=== PATIENT | female | born 1945 ===

== ENCOUNTER 2020-02-17 11:22 | Outpatient (CLI) | payer MEDICARE, SELFPAY ==
--- NOTE | 2020-02-17 11:32 | CT_ITS ---
WS: [id number] CT ABDOMEN PELVIS TECHNIQUE: Contrast-enhanced CT of the abdomen and pelvis with coronal and sagittal reformatted image s. CLINICAL INFORMATION: PERSONAL HX OF OTHER COLON CANCER COMPARISON: None. DLP: 725.[address] scans at [facility] use at least one of these dose optimization techniques: automat ed exposure control; mA and/or kV adjustment per patient size (includes targeted exams where dose is matched to clinical indication); or iterative reconstruction. FINDINGS: Mild diffuse fatty infiltration of the liver. Normal spleen. Normal pancreas. Portal veins and spleni c vein are patent. Adrenal glands are normal. Normal renal parenchymal enhancement. No hydronephrosis . Prior hysterectomy. Subsegmental atelectasis in the right middle lobe and right lower lobe. Normal GE junction. Prior postoperative changes sigmoid anastomosis. Diverticulosis. No evidence of acute diverticulitis. No evidence of small or large bowel obstruction. Normal appendix. No periaortic lymphadenopathy. No pelvic or inguinal lymphadenopathy. Normal caliber abdominal aorta with moderate calcified atheromato us disease. No aneurysm. Disc space narrowing worse L5-S1. Moderate central canal stenosis L3-L4 and L4-L5. CT/CT abdomen pelvis w con* [id number] IMPRESSION: 1. Mild diffuse fatty infiltration of the liver 2. Prior sigmoid resection with anastomosis. No visualized evidence of recurre nt mass or lesion. 3. Diverticulosis. No evidence of acute diverticulitis. 4. No evidence of small or large bowel obstruction. 5. No abdominal or pelvic lymphadenopathy. 6. Normal caliber abdominal aorta.
[2020-02-17 12:38] LABS: Blood Urea Nitrogen 13 mg/dL (8-23)
[2020-02-17] MEDS: iohexol 300 mg/mL 50 mL Btl PO (13:10)
[2020-02-17] MEDS: iodixanol 320 mg/mL 100mL Btl IV (13:11)
== END 2020-02-17 11:23 | disposition home or self-care (01) ==
LOC: CT 11:26
PROVIDERS: Visit Provider Nurse Practitioner Family
DX: R10.2 Pelvic and perineal pain (principal); Z85.038 Personal history of other malignant neoplasm of large intestine; K76.0 Fatty (change of) liver, not elsewhere classified; K63.89 Other specified diseases of intestine; K57.90 Diverticulosis of intestine, part unspecified, without perforation or abscess without bleeding
CPT/HCPCS: 36415; 74177; 82565; 84520

== ENCOUNTER 2020-05-04 07:42 | Outpatient (CLI) | payer MEDICARE, SELFPAY ==
--- NOTE | 2020-05-04 08:00 | CT_ITS ---
WS: [id number] CT scan of the chest with IV contrast, additional two-dimensional coronal and sagittal reconstruction was performed. 05/04/2020 Clinical Data: LUNG NODULES Comparison: None. DLP: 728.[address] scans at [facility] use at least one of these dose optimization techniques: automat ed exposure control; mA and/or kV adjustment per patient size (includes targeted exams where dose is matched to clinical indication); or iterative reconstruction. Findings: There is a soft tissue nodule in the lingula of the left upper lobe measuring 0.83 cm and seen best o n axial image 30 of 63. No masses or effusions are seen. The patient had partial resection of the rig ht sixth rib with postsurgical pleural changes.. There is minimal peripheral atelectasis distally abu tting the right pleura. No pneumonia or pneumothorax is present. The heart size is normal with no per icardial effusion. The pulmonary arterial system and thoracic aorta demonstrate no abnormalities or d ilatations. There is no axillary or significant mediastinal adenopathy. The upper abdomen shows minimal mural thrombosis of the infrarenal abdominal aorta. There is fatty i nfiltration of the liver. There is a T9 vertebral body hemangioma. CT/CT chest w con* [id number] Impression: 1. Low-density 0.83 cm nodule in lingula of the left upper lobe and recommend f ollow-up CT scan in 3 months. 2. Postsurgical changes of the right sixth rib and adjacent pleura. 3. No evidence of recurrent carcinoma.
[2020-05-04 08:41] LABS: Blood Urea Nitrogen 12 mg/dL (8-23)
[2020-05-04] MEDS: iohexol 300 mg/mL 100 mL Btl IV (08:48)
== END 2020-05-04 07:43 | disposition home or self-care (01) ==
PROVIDERS: PCP Nurse Practitioner Family; Visit Provider Nurse Practitioner Family
DX: R91.8 Other nonspecific abnormal finding of lung field (principal)
CPT/HCPCS: 71260; 82565; 84520; Q9967

== ENCOUNTER 2020-07-10 12:32 | Outpatient (CLI) | payer MEDICARE, SELFPAY ==
--- NOTE | 2020-07-12 17:05 | ONC CON_ITS ---
Dr. Dickerson New Patient Note Patient: Candi Pryor Unit #: [id number]: 1945 Dicatated By: Mahesh Dickerson M.D.Date of Visit: Jul 10, 2020 Onc MED New Patient/Consult Referring Physician: No 'Referrals from' exist for this patient. History of Present Illness: Ms. 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 As per patient she was followed by surgeon Dr. 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 As per patient she has history of thyroid cancer, diagnosed in 2007. at that time underwent partial thyroidectomy followed by radioactive iodine therapy and also has history of right lung cancer diagnosed in 2008 underwent resection followed by 1 dose of radiation Patient denies any history of smoking or alcohol use Patient denies any specific complaints today, no fever chills, no nausea or vomiting, no diarrhea or constipation, no melena or hematochezia, no jaundice, no abdominal pain as per patient she underwent CT scan of the chest on May 04, 2020 which showed low density 0.83 cm nodule in the lingula of left upper lobe and postsurgical change in the right sixth rib and adjacent pleura and no evidence of recurrent carcinoma prior to that on April 24, 2020 she had chest x-ray done which showed several small nodules scattered in the right lung. Past Medical History: Ms. Pryor's medical history consists of colon cancer, hypertension, lung cancer, throid cancer, and type II diabetes. Past Surgical History: There is no documented surgical history. Medications: Albuterol Sulfate HFA (108 (90 base) mcg/act) Aerosol, solution Inhalation 6x/d, ALPRAZolam (0.25 mg) Tablet Oral b.i.d., cloNIDine HCl (0.1 mg) Tablet Oral at bedtime, Cozaar (100 mg) Tablet Oral daily, Cyclobenzaprine HCl (10 mg) Tablet Oral t.i.d., Euthyrox (150 mcg) Tablet Oral every am, Glucophage (500 mg) Tablet Oral pc (bid), Simvastatin (20 mg) Tablet Oral daily, traZODone HCl (50 mg) Tablet Oral at bedtime Allergies: Morphine Sulf Microinfusion PF Social History: Ms. Pryor is . Ms. Pryor no longer smokes. She has no history of drinking. Family History: Ms. Pryor's mother is alive. Ms. Pryor's father is alive: hypertension, and type II diabetes. Ms. Pryor has 1 brother who is alive: diab. Review Of Symptoms: Review of Systems is not available for this patient. Vital Signs: Performed on Jul 10, 2020 13:44: 5, 0, 0.00 (LOW), sq.m, 99 %, 67 /min, 18 /min, 185/87 mm(hg) (HIGH), 97.5 F (LOW), and 165.6 lbs (HIGH). Performance Status: 1 - No physically strenuous activity, but ambulatory and able to carry out light or sedentary work (e.g. office work, light house work). (ECOG) Physical Examination: ENMT - No mouth sores, no thrush no jaundice, Respiratory - Lungs are clear to auscultation, Cardiovascular - Regular rate and rhythm of heart, Abdomen - Soft, bowel sounds present, Extremities - No visible edema. Lab/Imaging: Most recent lab results are not available for this patient. Impression: Moderately differentiated adenocarcinoma involving sigmoid colon/upper rectum status post robotic assisted LAR on January 19, 2019 final pathology report showed T3, N0 0 out of 6 lymph node positive for metastatic disease, stage II History of thyroid cancer diagnosed in 2007 status post partial thyroidectomy, as per patient she was given radioactive iodine History of right lung cancer status post resection 2008, as per patient she was given 1 dose of radiation Low density 0.83 cm nodule in lingula of left upper lobe seen on CT scan of chest done on May 04, 2020 Plan: Discussed with patient regarding her disease status and question and concerns and follow-up plan, Clinically, patient doing well with no new signs symptom suggestive of recurrence of disease patient was supposed get yearly follow-up colonoscopy after sigmoid colon/upper rectum cancer resection but due to Covid situation and personal issues it was not done, so we will refer her to GI for evaluation, patient wants to get it done in [facility] so we will refer her there. Patient will return to clinic in 3 months with CBC CMP and CEA and CT scan of chest with special attention to left lung nodule. Signed By: Mahesh Dickerson M.D. <<Signature on File>>
== END 2020-07-10 12:33 | disposition home or self-care (01) ==
PROVIDERS: PCP Nurse Practitioner Family; Referring Provider Family Medicine; Visit Provider Internal Medicine Hematology & Oncology
DX: Z08 Encounter for follow-up examination after completed treatment for malignant neoplasm (principal); Z85.038 Personal history of other malignant neoplasm of large intestine; R91.1 Solitary pulmonary nodule; E89.0 Postprocedural hypothyroidism; Z85.118 Personal history of other malignant neoplasm of bronchus and lung; Z85.850 Personal history of malignant neoplasm of thyroid; Z90.49 Acquired absence of other specified parts of digestive tract; Z90.2 Acquired absence of lung [part of]; Z92.3 Personal history of irradiation
CPT/HCPCS: 99204

== ENCOUNTER 2020-07-25 13:25 | Outpatient (CLI) | payer MEDICARE, SELFPAY ==
--- NOTE | 2020-07-25 13:50 | CT_ITS ---
WS: [id number] CT CHEST, ABDOMEN AND PELVIS WITH CONTRAST HISTORY: COLON CANCER TECHNIQUE: Contiguous 5 mm axial imaging performed through the chest, abdomen and pelvis with IV cont rast, oral contrast has been provided. Coronal and sagittal reformats chest. Coronal and sagittal ref ormats through the abdomen and pelvis. All CT scans at [facility] use at least one of the se dose optimization techniques: automated exposure control; mA and/or kV adjustment per patient size (includes targeted exams where dose is matched to clinical indication); or iterative reconstruction. CONTRAST: Omnipaque 300; 95 mL IV. DLP: 2207.81 mGycm COMPARISON: 05/04/2020 and 02/17/[address]: Chronic emphysematous changes with distal airways thickening. Again noted is the 8 mm nodul e at the lingula which has not increased in size since 05/04/2020. Pleural thickening and postsurgica l changes are noted in the RIGHT posterior lateral thorax. Parenchymal linear scars in the RIGHT midd le and RIGHT lower lobe. There is an area of pleural thickening with herniation of intercostal muscle s between 2 ribs. This appears between the seventh and eighth ribs. No new or increasing nodules. Mil d atherosclerosis aorta. No mediastinal or hilar adenopathy. Heart size is normal. Small hiatal herni a. Anterior chest wall is negative. Abdomen CT: Mild hepatic steatosis is unchanged. No mass within the liver. Spleen, gallbladder, pancr eas and adrenal glands are normal. Kidneys are normal size with no mass or obstruction. Moderate athe rosclerotic plaque within the aorta. No aneurysm. No adenopathy or ascites. Diffuse constipation. No GI tract obstruction. Numerous diverticula in the descending and sigmoid col on without acute diverticulitis. Surgical anastomosis near the sigmoid and rectum is stable. No recur rent mass or obstruction. Normal appendix. Pelvic CT: Well-distended urinary bladder. No free fluid or adenopathy in the pelvis. T9 hemangioma. No osteoblastic or osteolytic bone disease. CT/CT chest abd pel w con* IMPRESSION: 1. Stable 8 mm ovoid nodule in the lingula since 05/04/2020. Recommend [address] follow-up. 2. Postsurgical changes in the mid lateral RIGHT thorax are stable. No adenopa thy in the chest. 3. Rectosigmoid anastomosis is stable with no recurrent mass or obstruction. 4. Distal colonic diverticulosis without acute diverticulitis. 5. No metastatic disease to the liver or adrenal glands. 6. Moderate atherosclerosis abdominal aorta.
[2020-07-25] MEDS: iohexol 300 mg/mL 50 mL Btl PO (14:31)
[2020-07-25 15:30] LABS: Blood Urea Nitrogen 10 mg/dL (8-23)
[2020-07-25] MEDS: iohexol 300 mg/mL 100 mL Btl IV (15:48)
== END 2020-07-25 13:26 | disposition home or self-care (01) ==
LOC: RADWPI 13:44
PROVIDERS: PCP Nurse Practitioner Family; Visit Provider Internal Medicine Hematology & Oncology
DX: C18.7 Malignant neoplasm of sigmoid colon (principal); I70.0 Atherosclerosis of aorta; K57.90 Diverticulosis of intestine, part unspecified, without perforation or abscess without bleeding; K63.89 Other specified diseases of intestine
CPT/HCPCS: 71260; 74177; 82565; 84520; Q9967

== ENCOUNTER 2020-10-10 12:47 | Outpatient (CLI) | payer MEDICARE, SELFPAY ==
[2020-10-10 13:21] LABS: Basophils # 0.1 10^3/uL (0.0-0.1); Basophils % 0.6 %; Eosinophils # 0.1 10^3/uL (0.0-0.8); Eosinophils % 0.7 %; Hematocrit 44.2 % (37.0-47.0); Hemoglobin 15.1 g/dL (11.5-15.3); Lymphocytes % 25.6 %; Mean Corpuscular HGB Conc 34.2 g/dL (30.0-36.0); Mean Corpuscular Hemoglobin 33.6 pg (28.0-34.0); Mean Corpuscular Volume 98.4 fL (81-99); Mean Platelet Volume 10.6 fL (7.4-10.4); Monocytes # 0.7 10^3/uL (0.2-0.9); Monocytes % 5.6 %; Neutrophils # 7.87 10^3/uL (1.8-7.7); Neutrophils % 67.2 %; Nucleated Red Blood Cells % 0 %; Platelet Count 286 10^3/cmm (130-400); Red Blood Count 4.49 10^6/uL (4.1-5.3); Red Cell Distribution Width 13.2 % (12.1-15.1); White Blood Count 11.7 10^3/uL (4.0-10.0)
[2020-10-10 13:40] LABS: Carcinoembryonic Antigen 3.6 ng/mL (0.0-4.7)
[2020-10-10 13:51] LABS: Alanine Aminotransferase 13 U/L (0-33); Albumin Level 4.3 g/dL (3.5-5.2); Alkaline Phosphatase 110 IU/L (35-105); Anion Gap 18.3 (5-19); Aspartate Amino Transferase 14 U/L (0-32); Blood Urea Nitrogen 10 mg/dL (8-23); Calcium 8.9 mg/dL (8.5-10.5); Carbon Dioxide 23 mmol/L (22-29); Chloride 99 mmol/L (98-107); Globulin 2.6 g/dL (1.3-4.6); Glucose 147 mg/dL (65-115); Osmolality Calculated 284 mOsm/kg (285-295); Potassium 4.3 mmol/L (3.5-5.1); Sodium 136 mmol/L (136-145); Total Bilirubin 0.3 mg/dL (0.15-1.2); Total Protein 6.9 g/dL (6.6-8.7)
--- NOTE | 2020-10-10 15:16 | ONC FU_ITS ---
Dr. Dickerson follow up note Patient: Candi Pryor Unit #: [id number]: 1945 Dicatated By: Mahesh Dickerson M.D.Date of Visit:October 10, 2020 Onc Med Follow-up/Prog Note History of Present Illness: Ms. 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 As per patient she was followed by surgeon Dr. 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 As per patient she has history of thyroid cancer, diagnosed in 2007. at that time underwent partial thyroidectomy followed by radioactive iodine therapy and also has history of right lung cancer diagnosed in 2008 underwent resection followed by 1 dose of radiation Patient denies any history of smoking or alcohol use Patient denies any specific complaints today, no fever chills, no nausea or vomiting, no diarrhea or constipation, no melena or hematochezia, no jaundice, no abdominal pain as per patient she underwent CT scan of the chest on May 04, 2020 which showed low density 0.83 cm nodule in the lingula of left upper lobe and postsurgical change in the right sixth rib and adjacent pleura and no evidence of recurrent carcinoma prior to that on April 24, 2020 she had chest x-ray done which showed several small nodules scattered in the right lung. Follow-up CT scan of chest done on July 18, 2020 showed stable 8 mm ovoid nodule in the lingula since May 04, 2020 postsurgical changes in the mid lateral right thorax stable, no other abnormality seen except distal colonic diverticulosis Patient underwent colonoscopy on August 01, 2020, 2 tiny polyps one in the cecum and one at 45 cm from anal verge were removed both were benign, no other abnormality seen Came for follow-up, denies any specific complaints, no fever chills, no nausea or vomiting, no diarrhea or constipation, no abdominal pain, no jaundice, no melena or hematochezia, weight is stable. Recently underwent colonoscopy which was unremarkable except 2 benign polyps removed. Medications: Albuterol Sulfate HFA (108 (90 base) mcg/act) Aerosol, solution Inhalation 6x/d, ALPRAZolam (0.25 mg) Tablet Oral b.i.d., cloNIDine HCl (0.1 mg) Tablet Oral at bedtime, Cozaar (100 mg) Tablet Oral daily, Cyclobenzaprine HCl (10 mg) Tablet Oral t.i.d., Euthyrox (150 mcg) Tablet Oral every am, Glucophage (500 mg) Tablet Oral pc (bid), Simvastatin (20 mg) Tablet Oral daily, traZODone HCl (50 mg) Tablet Oral at bedtime Allergies: Morphine Sulf Microinfusion PF Review of Systems: Review of Systems is not available for this patient. Vital Signs: Performed on October 10, 2020 15:03 Weight - 162.6 lbs (LOW) BSA - 0.00 sq.m BMI - 0.00 Temperature - 97.6 F (LOW) Pulse - 67 /min Respiration - 18 /min BP - 162/89 mm(hg) (HIGH) O2 Sat - 97 % Pain - 0 Fatigue - 0 Performance Status: 0 - Fully active, able to carry on all predisease activities without restrictions. (ECOG) Physical Examination: ENMT - No mouth sores, no thrush, no jaundice, Respiratory - Lungs are clear to auscultation, Cardiovascular - Regular rate and rhythm of heart, Abdomen - Soft, bowel sounds present, Extremities - No visible edema. Lab/Imaging: Most recent lab results are not available for this patient. Impression: Moderately differentiated adenocarcinoma involving sigmoid colon/upper rectum status post robotic assisted LAR on January 19, 2019 final pathology report showed T3, N0 0 out of 6 lymph node positive for metastatic disease, stage II History of thyroid cancer diagnosed in 2007 status post partial thyroidectomy, as per patient she was given radioactive iodine History of right lung cancer status post resection 2008, as per patient she was given 1 dose of radiation Low density 0.83 cm nodule in lingula of left upper lobe seen on CT scan of chest done on May 04, 2020 Follow-up CT scan of chest done on July 25, 2020 showed stable 8 mm ovoid nodule in the lingula since May 04, 2020. Postsurgical changes. Follow-up colonoscopy done on August 01, 2020 showed 2 polyps one in the cecum and other at 45 cm from anal verge, biopsy shows unremarkable, no other abnormality seen. Plan: Discussed with patient regarding her labs white blood count 11.7 hemoglobin 15.1 hematocrit 44.2 platelets 286,000 CMP within normal limits, Follow-up CT scan of chest which shows stable left lung nodule and colonoscopy report which was done in July 2020 Clinically, patient doing well with no new signs symptoms history of recurrence of disease, her lab work-up is within normal range including tumor marker CEA which is 3.6 Her follow-up colonoscopy done recently showed no abnormality except 2 polyps removal both were benign, and follow-up CT scan of chest shows stable left lung nodule and follow-up in 6 months was recommended Return to clinic in 6 months with CBC CMP CEA and CT scan of chest Signed By: Mahesh Dickerson M.D. <<Signature on File>>
== END 2020-10-10 12:48 | disposition home or self-care (01) ==
LOC: ONCMED 12:49
PROVIDERS: PCP Nurse Practitioner Family; Visit Provider Internal Medicine Hematology & Oncology
DX: Z08 Encounter for follow-up examination after completed treatment for malignant neoplasm (principal); Z85.038 Personal history of other malignant neoplasm of large intestine; Z85.048 Personal history of other malignant neoplasm of rectum, rectosigmoid junction, and anus; Z85.850 Personal history of malignant neoplasm of thyroid; Z85.118 Personal history of other malignant neoplasm of bronchus and lung; Z79.899 Other long term (current) drug therapy
CPT/HCPCS: 80053; 82378; 85025; 99214

== ENCOUNTER 2021-04-15 11:13 | Outpatient (CLI) | payer MEDICARE, SELFPAY ==
[2021-04-15 12:55] LABS: Carcinoembryonic Antigen 3.4 ng/mL (0.0-4.7)
[2021-04-15 13:06] LABS: Alanine Aminotransferase 11 U/L (0-33); Alkaline Phosphatase 104 IU/L (35-105); Blood Urea Nitrogen 11 mg/dL (8-23); Calcium 8.7 mg/dL (8.5-10.5); Carbon Dioxide 21 mmol/L (22-29); Chloride 99 mmol/L (98-107); Globulin 2.9 g/dL (1.3-4.6); Glucose 140 mg/dL (65-115); Osmolality Calculated 286 mOsm/kg (285-295); Sodium 137 mmol/L (136-145); Total Bilirubin 0.3 mg/dL (0.15-1.2); Total Protein 6.9 g/dL (6.6-8.7)
[2021-04-15 13:10] LABS: Anion Gap 21.1 (5-19); Aspartate Amino Transferase 14 U/L (0-32); Potassium 4.1 mmol/L (3.5-5.1)
[2021-04-15 13:33] LABS: Basophils # 0.1 10^3/uL (0.0-0.1); Basophils % 0.8 %; Eosinophils # 0.1 10^3/uL (0.0-0.8); Hematocrit 41.1 % (37.0-47.0); Hemoglobin 14.3 g/dL (11.5-15.3); Lymphocytes % 29.7 %; Mean Corpuscular HGB Conc 34.8 g/dL (30.0-36.0); Mean Corpuscular Hemoglobin 33.4 pg (28.0-34.0); Mean Platelet Volume 11.7 fL (7.4-10.4); Monocytes # 0.7 10^3/uL (0.2-0.9); Monocytes % 7.2 %; Neutrophils # 6.23 10^3/uL (1.8-7.7); Neutrophils % 60.9 %; Nucleated Red Blood Cells % 0 %; Platelet Count 269 10^3/cmm (130-400); Red Blood Count 4.28 10^6/uL (4.1-5.3); Red Cell Distribution Width 13.4 % (12.1-15.1); White Blood Count 10.2 10^3/uL (4.0-10.0)
--- NOTE | 2021-04-15 15:44 | ONC FU_ITS ---
Dr. Dickerson follow up note Patient: Candi Pryor Unit #: [id number]: 1945 Dicatated By: Mahesh Dickerson M.D.Date of Visit:Apr 15, 2021 Onc Med Follow-up/Prog Note History of Present Illness: Ms. 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 As per patient she was followed by surgeon Dr. 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 As per patient she has history of thyroid cancer, diagnosed in 2007. at that time underwent partial thyroidectomy followed by radioactive iodine therapy and also has history of right lung cancer diagnosed in 2008 underwent resection followed by 1 dose of radiation Patient denies any history of smoking or alcohol use Patient denies any specific complaints today, no fever chills, no nausea or vomiting, no diarrhea or constipation, no melena or hematochezia, no jaundice, no abdominal pain as per patient she underwent CT scan of the chest on May 04, 2020 which showed low density 0.83 cm nodule in the lingula of left upper lobe and postsurgical change in the right sixth rib and adjacent pleura and no evidence of recurrent carcinoma prior to that on April 24, 2020 she had chest x-ray done which showed several small nodules scattered in the right lung. Follow-up CT scan of chest done on July 18, 2020 showed stable 8 mm ovoid nodule in the lingula since May 04, 2020 postsurgical changes in the mid lateral right thorax stable, no other abnormality seen except distal colonic diverticulosis Patient underwent colonoscopy on August 01, 2020, 2 tiny polyps one in the cecum and one at 45 cm from anal verge were removed both were benign, no other abnormality seen Came for follow-up, denies any specific complaint except weight gain but no lower extremity edema, no shortness of breath, no fever chills, no nausea or vomiting, no diarrhea or constipation, no hemoptysis or hematemesis, no jaundice, no melena hematochezia Medications: Albuterol Sulfate HFA (108 (90 base) mcg/act) Aerosol, solution Inhalation 6x/d, ALPRAZolam (0.25 mg) Tablet Oral b.i.d., cloNIDine HCl (0.1 mg) Tablet Oral at bedtime, Cozaar (100 mg) Tablet Oral daily, Cyclobenzaprine HCl (10 mg) Tablet Oral t.i.d., Euthyrox (150 mcg) Tablet Oral every am, Glucophage (500 mg) Tablet Oral pc (bid), Simvastatin (20 mg) Tablet Oral daily, traZODone HCl (50 mg) Tablet Oral at bedtime Allergies: Morphine Sulf Microinfusion PF Review of Systems: Review of Systems is not available for this patient. Vital Signs: Performed on Apr 15, 2021 13:11 Height - 65 in Weight - 169.6 lbs (HIGH) BSA - 1.84 sq.m BMI - 28.22 Temperature - 98.2 F (LOW) Pulse - 73 /min Respiration - 18 /min BP - 186/81 mm(hg) (HIGH) O2 Sat - 97 % Pain - 0 Fatigue - 6 Performance Status: 0 - Fully active, able to carry on all predisease activities without restrictions. (ECOG) Physical Examination: ENMT - No mouth sores, no thrush, no jaundice, Respiratory - Lungs are clear to auscultation, Cardiovascular - Regular rate and rhythm of heart, Abdomen - Soft, bowel sounds present, Extremities - No visible edema. Lab/Imaging: Test performed on Mar 29, 2021 10:45 BUN 14 mg/dL Creatinine 0.9 mg/dL Impression: Moderately differentiated adenocarcinoma involving sigmoid colon/upper rectum status post robotic assisted LAR on January 19, 2019 final pathology report showed T3, N0 0 out of 6 lymph node positive for metastatic disease, stage II History of thyroid cancer diagnosed in 2007 status post partial thyroidectomy, as per patient she was given radioactive iodine History of right lung cancer status post resection 2008, as per patient she was given 1 dose of radiation Low density 0.83 cm nodule in lingula of left upper lobe seen on CT scan of chest done on May 04, 2020 Follow-up CT scan of chest done on July 25, 2020 showed stable 8 mm ovoid nodule in the lingula since May 04, 2020. Postsurgical changes. Follow-up colonoscopy done on August 01, 2020 showed 2 polyps one in the cecum and other at 45 cm from anal verge, biopsy shows unremarkable, no other abnormality seen. Plan: Discussed with patient regarding her labs, CBC CMP within normal limits CEA 3.4 CT scan of chest done on March 29, 2021 showed postoperative changes in the right hemithorax, hepatic steatosis, thoracic spondylosis. Clinically, patient doing well with no new signs symptoms history of recurrence of disease her lab work-up including tumor marker CEA and follow-up CT scan of chest showed no evidence of recurrence of disease clinically, patient doing well will continue to monitor and she will return to clinic in 6 months with CBC CMP and CEA Mild leukocytosis, not improving, no sign of infections, will continue to monitor, if there is no resolution may consider whole blood flow cytometry. Signed By: Mahesh Dickerson M.D. <<Signature on File>>
== END 2021-04-15 11:14 | disposition home or self-care (01) ==
PROVIDERS: PCP Nurse Practitioner Family; Visit Provider Internal Medicine Hematology & Oncology
DX: Z08 Encounter for follow-up examination after completed treatment for malignant neoplasm (principal); Z85.038 Personal history of other malignant neoplasm of large intestine; Z85.850 Personal history of malignant neoplasm of thyroid; Z85.118 Personal history of other malignant neoplasm of bronchus and lung; Z86.010 Personal history of colon polyps; Z79.899 Other long term (current) drug therapy
CPT/HCPCS: 36415; 80053; 82378; 85025; 99214

== ENCOUNTER 2021-11-06 11:30 | Oncology outpatient (recurring) (ONCR) | payer MEDICARE, SELFPAY ==
[2021-11-06 12:00] LABS: Basophils # 0.1 10^3/uL (0.0-0.1); Basophils % 0.9 %; Eosinophils # 0.1 10^3/uL (0.0-0.8); Eosinophils % 0.7 %; Hematocrit 40.4 % (37.0-47.0); Hemoglobin 13.9 g/dL (11.5-15.3); Lymphocytes # 2.6 10^3/uL (0.8-4.8); Lymphocytes % 29.1 %; Mean Corpuscular HGB Conc 34.4 g/dL (30.0-36.0); Mean Corpuscular Hemoglobin 32.5 pg (28.0-34.0); Mean Corpuscular Volume 94.4 fl (81-99); Mean Platelet Volume 10.3 fL (7.4-10.4); Monocytes # 0.6 10^3/uL (0.2-0.9); Monocytes % 6.2 %; Neutrophils # 5.59 10^3/uL (1.8-7.7); Neutrophils % 62.8 %; Nucleated Red Blood Cells % 0 %; Platelet Count 290 10^3/cmm (130-400); Red Blood Count 4.28 10^6/uL (4.1-5.3); Red Cell Distribution Width 13.1 % (12.1-15.1); White Blood Count 8.9 10^3/uL (4.0-10.0)
[2021-11-06 12:44] LABS: Carcinoembryonic Antigen 3.7 ng/mL (0.0-4.7)
[2021-11-06 12:55] LABS: Alanine Aminotransferase 12 U/L (0-33); Albumin Level 3.9 g/dL (3.5-5.2); Alkaline Phosphatase 99 IU/L (35-105); Anion Gap 17.1 (5-19); Aspartate Amino Transferase 11 U/L (0-32); Blood Urea Nitrogen 16 mg/dL (8-23); Carbon Dioxide 19 mmol/L (22-29); Chloride 94 mmol/L (98-107); Globulin 3.3 g/dL (1.3-4.6); Glucose 155 mg/dL (65-115); Osmolality Calculated 266 mOsm/kg (285-295); Potassium 4.1 mmol/L (3.5-5.1); Sodium 126 mmol/L (136-145); Total Bilirubin 0.3 mg/dL (0.15-1.2); Total Protein 7.2 g/dL (6.6-8.7)
== END 2021-11-14 23:59 | disposition home or self-care (01) ==
PROVIDERS: PCP Nurse Practitioner Family; Referring Provider Nurse Practitioner Family; Visit Provider Internal Medicine Hematology & Oncology
DX: C18.7 Malignant neoplasm of sigmoid colon (principal); K59.09 Other constipation; E87.1 Hypo-osmolality and hyponatremia; Z90.49 Acquired absence of other specified parts of digestive tract
CPT/HCPCS: 80053; 82378; 85025; 99214

== ENCOUNTER → 2021-11-20 12:29 | Outpatient (BNVA) | payer MEDICARE, SELFPAY | PROVIDERS: PCP Nurse Practitioner Family; Referring Provider Internal Medicine Hematology & Oncology; Visit Provider Surgery | DX: C18.9 Malignant neoplasm of colon, unspecified (principal) | CPT/HCPCS: 99203 ==

== ENCOUNTER 2021-11-27 06:44 | Day surgery (SDC) | payer MEDICARE, SELFPAY ==
[2021-11-22 11:04] VITALS: BMI 26.8
[2021-11-27 07:38] VITALS: BP 146/76; PULSE 57; RESP 18; TEMP 35.8; O2SAT 94
[2021-11-27] MEDS: sodium chloride 0.9% 1,000 ML 30 ML IV (07:38)
--- NOTE | 2021-11-27 07:50 | ANES.PREANE2 ---
Pre-Anesthetic Assessment Height/Weight: Height 1.65 m Weight 73.028 kg Temp Pulse Resp BP Pulse Ox 96.5 F L 57 L 18 146/76 94 11/27/21 07:38 11/27/21 07:38 11/27/21 07:38 11/27/21 07:38 11/27/21 07:38 Preop Diagnosis: History of colon cancer Operation Date: 11/27/21 08:30 Proposed Procedures p Colonoscopy 75234,C18.9(Not Applicable) - Axel Cervantes MD Familial anesthetic complications: none Was Beta Teresa taken within 24 hours: N/A Was Clonidine taken within 24 hours: Yes Last intake: Intake Last Liquid Date 11/28/21 Last Liquid Time 20:30 Last Solid Date 11/25/21 Last Solid Time 20:00 Social Tobacco and No alcohol Exam alert, oriented x 3, clear to auscultation bilaterally and regular rate & rhythm Airway Submandibular: within normal limits Cervical ROM: within normal limits Mallampati: Class III Dentition: false Pulmonary None reported CV/HEM None reported None reported Hepatic None reported GI Colon cancer Metabolic Thyroid Disease (Hx of thyroid cancer ) Neuropsych Anxiety and None reported Anesthetic Plan ASA status: 3 (76 year old female daily smoker with hx of colon and thyroid cancer ) Anesthesia: Anesthesia Evaluation, General and MAC Other: I discussed with the patient risks, goals, and benefits of MAC and general anesthesia. We discussed spectrum of MAC anesthesia including conversion to general as well as possibility of recall of intraoperative stimuli including discomfort/pain. Patient agrees to proceed with MAC. Risk of > 500 ml blood loss (7ml/kg in children): No Medications/Allergies Home Medications Medication Instructions Recorded Confirmed Last Taken Type albuterol sulfate 90 mcg/actuation 1 inh INHALATION QID PRN 11/06/21 11/22/21 11/26/21 History breath activated powder inhaler alprazolam 0.25 mg tablet 0.25 mg PO BID 11/06/21 11/22/21 11/26/21 History clonidine HCl 0.1 mg tablet 0.1 mg PO .hs tab 11/06/21 11/22/21 11/26/21 History cyclobenzaprine 10 mg tablet 10 mg PO TID 11/06/21 11/22/21 11/26/21 History levothyroxine 150 mcg capsule 150 mcg PO DAILY 06/11/22/21 11/26/21 History losartan 100 mg tablet (Cozaar) 100 mg PO DAILY 11/06/21 11/22/21 11/26/21 History metformin 500 mg tablet 500 mg PO BID 11/06/21 11/22/21 11/26/21 History simvastatin 20 mg tablet 20 mg PO DAILY 11/06/21 11/22/21 11/26/21 History trazodone 50 mg tablet 25 mg PO .hs tab 11/06/21 11/22/21 11/26/21 History lactulose 10 gram/15 mL oral 15 ml PO BID 7 Days #210 ml 11/20/21 11/22/21 11/26/21 Rx solution Allergies Allergy/AdvReac Type Severity Reaction Status Date / Time Opioids - Morphine Analogues Allergy Unknown ADR-Itching Verified 11/27/21 07:34 Current Medications Generic Name Dose Route Start Last Admin Trade Name Freq PRN Reason Stop Dose Admin Sodium Chloride 1,000 mls @ 30 mls/hr 11/27/21 07:00 11/27/21 07:38 Sodium Chloride 0.9% IV 11/28/21 06:59 30 mls/hr .Q24H JACK Administration PFSH Anesthesia Medical History Colon cancer Family History Father CAD (coronary artery disease) Cancer thyroid Mother CAD (coronary artery disease) Brother Diabetes Sister Diabetes Other Hyperlipidemia Hypertension Denies family history of Clotting disorder Dementia Psychiatric illness Chronic kidney disease (CKD) Suicide Anesthesia complication Bleeding disorder Lung disease Stroke Social History Smoking and tobacco status: current every day smoker (Trying to quit - about 1 to 2 cigs/day) cigarettes [ Other cigarette details: Trying to quit] Data Anesthesia Cardiac Studies: No Data to Display
--- NOTE | 2021-11-27 08:00 | W.PM.OPSUD ---
Surgery/Procedure H&P Update DATE OF PROCEDURE: November 27, 2021 DATE H&P PERFORMED: 11/20/21 H&P UPDATE INFORMATION: I have reviewed H&P completed within last 30 days, I have examined patient prior to procedure and No changes to prior documentation PREOP DIAGNOSIS: History of colon cancer PRIMARY INDICATION FOR PROCEDURE: The same PLANNED PROCEDURE: Operation Date: 11/27/21 08:30 Proposed Procedures p Colonoscopy 32641,C18.9(Not Applicable) - Axel Cervantes MD
[2021-11-27 08:55] VITALS: BP 155/77; PULSE 51; RESP 14; TEMP 36.3; O2SAT 95
[2021-11-27 09:05] VITALS: BP 154/98; PULSE 50; RESP 16; O2SAT 93
[2021-11-27 09:15] VITALS: BP 188/91; PULSE 52; RESP 16; O2SAT 97
--- NOTE | 2021-11-27 13:30 | ANE.PACU2 ---
Inpatient post-anesthesia follow up: Airway intact: Yes Vital signs: Temperature 97.4 F Pulse Rate 52 Respiratory Rate 16 Blood Pressure 188/91 Pulse Oximetry 97 Oxygen Delivery Me thod Room Air Oxygen Flow Rate Fraction of Inspir ed Oxygen Hydration adequate: Yes Nausea and vomiting: No Pain level: 1 Mental status: Baseline
== END 2021-11-27 09:35 | disposition home or self-care (01) ==
PROVIDERS: PCP Family Medicine; Visit Provider Surgery
PROC: 0DJD8ZZ Inspection of Lower Intestinal Tract, Via Natural or Artificial Opening Endoscopic (ICD-10-PCS; CPT 45378; principal; 2021-11-27 08:30)
DX: Z12.11 Encounter for screening for malignant neoplasm of colon (principal); K57.30 Diverticulosis of large intestine without perforation or abscess without bleeding; Z80.0 Family history of malignant neoplasm of digestive organs; Z90.49 Acquired absence of other specified parts of digestive tract; Z85.850 Personal history of malignant neoplasm of thyroid; Z92.21 Personal history of antineoplastic chemotherapy; F17.210 Nicotine dependence, cigarettes, uncomplicated
CPT/HCPCS: 45378; J2704; J7030

== ENCOUNTER 2022-07-15 13:04 | Oncology outpatient (recurring) (ONCR) | payer MEDICARE, SELFPAY ==
[2022-07-15 14:22] LABS: Basophils # 0.1 10^3/uL (0.0-0.1); Basophils % 0.8 %; Eosinophils # 0.1 10^3/uL (0.0-0.8); Eosinophils % 0.8 %; Hematocrit 41.6 % (37.0-47.0); Hemoglobin 13.9 g/dL (11.5-15.3); Lymphocytes # 4.1 10^3/uL (0.8-4.8); Lymphocytes % 33.8 %; Mean Corpuscular HGB Conc 33.4 g/dL (30.0-36.0); Mean Corpuscular Hemoglobin 32.6 pg (28.0-34.0); Mean Corpuscular Volume 97.7 fl (81-99); Mean Platelet Volume 10.4 fL (7.4-10.4); Monocytes % 7.9 %; Neutrophils # 6.75 10^3/uL (1.8-7.7); Neutrophils % 56.3 %; Nucleated Red Blood Cells % 0 %; Platelet Count 309 10^3/cmm (130-400); Red Blood Count 4.26 10^6/uL (4.1-5.3); Red Cell Distribution Width 13.7 % (12.1-15.1)
[2022-07-15 14:53] LABS: Carcinoembryonic Antigen 3.8 ng/mL (0.0-4.7)
[2022-07-15 15:04] LABS: Alanine Aminotransferase 14 U/L (0-33); Albumin Level 4.1 g/dL (3.5-5.2); Alkaline Phosphatase 109 U/L (35-105); Anion Gap 17.7 (5-19); Aspartate Amino Transferase 14 U/L (0-32); Blood Urea Nitrogen 14 mg/dL (8-23); Calcium 9.1 mg/dL (8.5-10.5); Carbon Dioxide 24 mmol/L (22-29); Chloride 98 mmol/L (98-107); Globulin 3.3 g/dL (1.3-4.6); Glucose 78 mg/dL (65-115); Osmolality Calculated 281 mOsm/kg (285-295); Potassium 3.7 mmol/L (3.5-5.1); Sodium 136 mmol/L (136-145); Total Bilirubin 0.3 mg/dL (0.15-1.2); Total Protein 7.4 g/dL (6.6-8.7)
== END 2022-07-15 23:59 | disposition home or self-care (01) ==
PROVIDERS: PCP Family Medicine; Visit Provider Internal Medicine Hematology & Oncology
DX: Z08 Encounter for follow-up examination after completed treatment for malignant neoplasm (principal); Z85.038 Personal history of other malignant neoplasm of large intestine; D72.829 Elevated white blood cell count, unspecified; F17.210 Nicotine dependence, cigarettes, uncomplicated
CPT/HCPCS: 36415; 80053; 82378; 85025; 99214

== ENCOUNTER 2023-01-14 10:22 | Oncology outpatient (recurring) (ONCR) | payer MEDICARE, SELFPAY ==
[2023-01-14 10:23] VITALS: BMI 27.8
[2023-01-14 10:26] VITALS: BP 204/100; PULSE 67; RESP 16; TEMP 36.1; O2SAT 97
[2023-01-14 10:51] LABS: Basophils # 0.1 10^3/uL (0.0-0.1); Basophils % 0.9 %; Eosinophils # 0.1 10^3/uL (0.0-0.8); Eosinophils % 1.5 %; Hematocrit 41.2 % (36-47); Lymphocytes # 2.4 10^3/uL (0.8-4.8); Lymphocytes % 30.5 %; Mean Corpuscular Volume 97.2 fl (85-98); Monocytes # 0.6 10^3/uL (0.2-0.9); Monocytes % 7.1 %; Neutrophils # 4.71 10^3/uL (1.8-7.7); Neutrophils % 59.7 %; Nucleated Red Blood Cells % 0 %; Platelet Count 302 10^3/cmm (157-399); Red Blood Count 4.24 10^6/uL (3.85-5.65); Red Cell Distribution Width 13.2 % (12.1-15.1); White Blood Count 7.89 10^3/uL (3.29-11.43)
[2023-01-14 11:16] LABS: Carcinoembryonic Antigen 4.8 ng/mL (0.0-4.7)
[2023-01-14 11:27] LABS: Alanine Aminotransferase 14 U/L (0-33); Albumin Level 4.5 g/dL (3.5-5.2); Alkaline Phosphatase 97 U/L (35-105); Aspartate Amino Transferase 14 U/L (0-32); Blood Urea Nitrogen 15 mg/dL (8-23); Calcium 9.3 mg/dL (8.5-10.5); Carbon Dioxide 26 mmol/L (22-29); Chloride 97 mmol/L (98-107); Globulin 2.7 g/dL (1.3-4.6); Glucose 138 mg/dL (65-115); Osmolality Calculated 281 mOsm/kg (285-295); Sodium 134 mmol/L (136-145); Total Bilirubin 0.4 mg/dL (0.15-1.2); Total Protein 7.2 g/dL (6.6-8.7)
[2023-01-14 11:28] LABS: Creatinine Clr Calc Pharmacy 48.7333
== END 2023-01-15 23:59 | disposition home or self-care (01) ==
PROVIDERS: Internal Medicine Medical Oncology; PCP Family Medicine; Visit Provider Internal Medicine Hematology & Oncology
DX: C18.9 Malignant neoplasm of colon, unspecified (principal); C18.7 Malignant neoplasm of sigmoid colon; I10 Essential (primary) hypertension; Z79.899 Other long term (current) drug therapy
CPT/HCPCS: 36415; 80053; 82378; 85025; 99215

== ENCOUNTER 2023-06-26 08:42 | Oncology outpatient (recurring) (ONCR) | payer MEDICARE, SELFPAY ==
[2023-06-26 09:23] LABS: Basophils # 0.1 10^3/uL (0.0-0.1); Basophils % 1.3 %; Eosinophils # 0.2 10^3/uL (0.0-0.8); Eosinophils % 2.8 %; Hematocrit 40.7 % (36-47); Lymphocytes # 2.1 10^3/uL (0.8-4.8); Lymphocytes % 29.4 %; Mean Corpuscular HGB Conc 34.6 g/dL (30-55); Mean Corpuscular Hemoglobin 34.1 pg (27-33); Mean Corpuscular Volume 98.3 fl (85-98); Mean Platelet Volume 9.7 fL (7.4-10.4); Monocytes # 0.5 10^3/uL (0.2-0.9); Monocytes % 7.6 %; Neutrophils # 4.19 10^3/uL (1.8-7.7); Neutrophils % 58.5 %; Nucleated Red Blood Cells % 0 %; Platelet Count 295 10^3/cmm (157-399); Red Blood Count 4.14 10^6/uL (3.85-5.65); White Blood Count 7.15 10^3/uL (3.29-11.43)
[2023-06-26 09:48] LABS: Carcinoembryonic Antigen 5.5 ng/mL (0.0-4.7)
[2023-06-26 10:00] LABS: Alanine Aminotransferase 17 U/L (0-33); Alkaline Phosphatase 103 U/L (35-105); Anion Gap 16.7 (5-19); Aspartate Amino Transferase 14 U/L (0-32); Blood Urea Nitrogen 16 mg/dL (8-23); Calcium 9.3 mg/dL (8.5-10.5); Carbon Dioxide 26 mmol/L (22-29); Chloride 97 mmol/L (98-107); Globulin 3.3 g/dL (1.3-4.6); Glucose 129 mg/dL (65-115); Osmolality Calculated 283 mOsm/kg (285-295); Potassium 4.7 mmol/L (3.5-5.1); Sodium 135 mmol/L (136-145); Total Bilirubin 0.3 mg/dL (0.15-1.2); Total Protein 7.3 g/dL (6.6-8.7)
== END 2023-07-16 23:59 | disposition home or self-care (01) ==
PROVIDERS: Nurse Practitioner Family; PCP Family Medicine; Visit Provider Internal Medicine Hematology & Oncology
DX: Z85.038 Personal history of other malignant neoplasm of large intestine (principal); R97.0 Elevated carcinoembryonic antigen [CEA]; F17.210 Nicotine dependence, cigarettes, uncomplicated; I10 Essential (primary) hypertension; R91.1 Solitary pulmonary nodule; Z90.49 Acquired absence of other specified parts of digestive tract
CPT/HCPCS: 36415; 80053; 82378; 85025; 99214

== ENCOUNTER 2024-01-22 09:12 | Oncology outpatient (recurring) (ONCR) | payer MEDICARE, SELFPAY ==
[2024-01-22 10:10] LABS: Basophils # 0.1 10^3/uL (0.0-0.1); Basophils % 0.9 %; Eosinophils # 0.3 10^3/uL (0.0-0.8); Eosinophils % 2.6 %; Lymphocytes # 3.4 10^3/uL (0.8-4.8); Lymphocytes % 34.6 %; Mean Corpuscular HGB Conc 33.8 g/dL (30-55); Mean Corpuscular Hemoglobin 33.3 pg (27-33); Mean Corpuscular Volume 98.6 fl (85-98); Mean Platelet Volume 9.8 fL (7.4-10.4); Monocytes # 0.7 10^3/uL (0.2-0.9); Monocytes % 6.6 %; Neutrophils # 5.39 10^3/uL (1.8-7.7); Neutrophils % 54.9 %; Nucleated Red Blood Cells % 0 %; Platelet Count 300 10^3/cmm (157-399); Red Blood Count 4.26 10^6/uL (3.85-5.65); Red Cell Distribution Width 13.8 % (12.1-15.1); White Blood Count 9.83 10^3/uL (3.29-11.43)
[2024-01-22 10:48] LABS: Alanine Aminotransferase 17 U/L (0-33); Albumin Level 4.2 g/dL (3.5-5.2); Alkaline Phosphatase 101 U/L (35-105); Anion Gap 16.1 (5-19); Aspartate Amino Transferase 17 U/L (0-32); Blood Urea Nitrogen 17 mg/dL (8-23); Calcium 8.9 mg/dL (8.5-10.5); Carbon Dioxide 26 mmol/L (22-29); Chloride 94 mmol/L (98-107); Globulin 3.2 g/dL (1.3-4.6); Glucose 171 mg/dL (65-115); Osmolality Calculated 280 mOsm/kg (285-295); Potassium 4.1 mmol/L (3.5-5.1); Sodium 132 mmol/L (136-145); Total Bilirubin 0.3 mg/dL (0.15-1.2); Total Protein 7.4 g/dL (6.6-8.7)
[2024-01-22] MEDS: ondansetron 4 MG Tablet 8 MG PO (12:00)
== END 2024-02-15 23:59 | disposition home or self-care (01) ==
PROVIDERS: Nurse Practitioner Family; PCP Family Medicine; Visit Provider Internal Medicine Hematology & Oncology
DX: C18.9 Malignant neoplasm of colon, unspecified (principal); I10 Essential (primary) hypertension; Z90.49 Acquired absence of other specified parts of digestive tract; F17.210 Nicotine dependence, cigarettes, uncomplicated
CPT/HCPCS: 36415; 80053; 82378; 85025; 99214; Q0162

== ENCOUNTER 2024-08-10 12:58 | Oncology outpatient (recurring) (ONCR) | payer MEDICARE, SELFPAY ==
[2024-08-10 13:21] LABS: Basophils # 0.1 10^3/uL (0.0-0.1); Basophils % 1.1 %; Eosinophils # 0.1 10^3/uL (0.0-0.8); Eosinophils % 1.4 %; Hematocrit 41.1 % (36-47); Lymphocytes # 3.3 10^3/uL (0.8-4.8); Lymphocytes % 32.9 %; Mean Corpuscular HGB Conc 33.3 g/dL (30-55); Mean Corpuscular Hemoglobin 32.5 pg (27-33); Mean Corpuscular Volume 97.4 fl (85-98); Mean Platelet Volume 9.6 fL (7.4-10.4); Monocytes # 0.8 10^3/uL (0.2-0.9); Monocytes % 7.7 %; Neutrophils # 5.67 10^3/uL (1.8-7.7); Neutrophils % 56.6 %; Nucleated Red Blood Cells % 0 %; Platelet Count 360 10^3/cmm (157-399); Red Blood Count 4.22 10^6/uL (3.85-5.65); Red Cell Distribution Width 13.7 % (12.1-15.1); White Blood Count 10.01 10^3/uL (3.29-11.43)
[2024-08-10 14:00] LABS: Carcinoembryonic Antigen 4.7 ng/mL (0.0-4.7)
[2024-08-10 14:11] LABS: Alanine Aminotransferase 16 U/L (0-33); Albumin Level 4.2 g/dL (3.5-5.2); Alkaline Phosphatase 115 U/L (35-105); Anion Gap 15.9 (5-19); Aspartate Amino Transferase 16 U/L (0-32); Blood Urea Nitrogen 15 mg/dL (8-23); Calcium 9.4 mg/dL (8.5-10.5); Carbon Dioxide 27 mmol/L (22-29); Chloride 94 mmol/L (98-107); Globulin 3.5 g/dL (1.3-4.6); Glucose 178 mg/dL (65-115); Osmolality Calculated 281 mOsm/kg (285-295); Potassium 3.9 mmol/L (3.5-5.1); Sodium 133 mmol/L (136-145); Total Bilirubin 0.3 mg/dL (0.15-1.2); Total Protein 7.7 g/dL (6.6-8.7)
== END 2024-08-15 23:59 | disposition home or self-care (01) ==
PROVIDERS: Nurse Practitioner Family; PCP Family Medicine; Visit Provider Internal Medicine
DX: Z08 Encounter for follow-up examination after completed treatment for malignant neoplasm (principal); Z85.038 Personal history of other malignant neoplasm of large intestine; Z72.0 Tobacco use; I10 Essential (primary) hypertension; Z90.49 Acquired absence of other specified parts of digestive tract; Z71.6 Tobacco abuse counseling
CPT/HCPCS: 36415; 80053; 82378; 85025; 99214

== ENCOUNTER 2025-02-08 11:56 | Oncology outpatient (recurring) (ONCR) | payer MEDICARE, SELFPAY ==
[2025-02-08 12:34] LABS: Hematocrit 40.9 % (36-47); Hemoglobin 13.80 g/dL (11.27-16.99); Mean Corpuscular HGB Conc 33.7 g/dL (30-55); Mean Corpuscular Hemoglobin 33.4 pg (27-33); Mean Corpuscular Volume 99.0 fl (85-98); Nucleated Red Blood Cells % 0 %; Platelet Count 309 10^3/cmm (157-399); Red Blood Count 4.13 10^6/uL (3.85-5.65); White Blood Count 9.19 10^3/uL (3.29-11.43)
[2025-02-08 12:54] LABS: Alanine Aminotransferase 14 U/L (0-33); Albumin Level 4.1 g/dL (3.5-5.2); Alkaline Phosphatase 104 U/L (35-105); Anion Gap 11.8 (5-19); Aspartate Amino Transferase 14 U/L (0-32); Blood Urea Nitrogen 13 mg/dL (8-23); Calcium 9.5 mg/dL (8.5-10.5); Carbon Dioxide 30 mmol/L (22-29); Chloride 97 mmol/L (98-107); Creatinine Clr Calc Pharmacy 52.7511; Globulin 3.4 g/dL (1.3-4.6); Glucose 233 mg/dL (65-115); Osmolality Calculated 288 mOsm/kg (285-295); Potassium 3.8 mmol/L (3.5-5.1); Sodium 135 mmol/L (136-145); Total Protein 7.5 g/dL (6.6-8.7)
[2025-02-08 16:21] LABS: Carcinoembryonic Antigen 4.6 ng/mL (0.0-4.7)
== END 2025-02-14 23:59 | disposition home or self-care (01) ==
PROVIDERS: Nurse Practitioner Family; PCP Family Medicine; Visit Provider Internal Medicine
DX: Z08 Encounter for follow-up examination after completed treatment for malignant neoplasm (principal); Z85.038 Personal history of other malignant neoplasm of large intestine; Z90.49 Acquired absence of other specified parts of digestive tract; Z85.118 Personal history of other malignant neoplasm of bronchus and lung; I10 Essential (primary) hypertension; Z87.891 Personal history of nicotine dependence; K59.00 Constipation, unspecified; Z91.81 History of falling; E07.9 Disorder of thyroid, unspecified; R60.0 Localized edema
CPT/HCPCS: 36415; 80053; 82378; 85025; 99215